=== PATIENT | female | born 1980 | race Caucasian/White ===

== ENCOUNTER 2017-02-10 16:17 | Emergency (ER) | payer OTHER ==
[~2017-02-10] VITALS: Ht 175.3 cm; Wt 84.4 kg
[2017-02-10] MEDS ORDERED: CALCTAB37 PO (16:57)
[2017-02-10] MEDS ORDERED: MAGN250T5 PO (16:57)
[2017-02-10] MEDS ORDERED: VITA100066 PO (16:57)
[2017-02-10] MEDS ORDERED: FLINCHW5 PO (16:57)
[2017-02-10] MEDS ORDERED: ESCI10TA2 PO (16:57)
[2017-02-10] MEDS ORDERED: BLAC160C PO (16:57)
[2017-02-10] MEDS ORDERED: BIOT10005 PO (16:57)
[2017-02-10] MEDS ORDERED: VITB12 (16:57)
[2017-02-10] MEDS ORDERED: ACETAMINOPHEN 325 MG TAB PO ONE (19:45)
--- NOTE | 2017-02-10 20:20 | REPUSA ---
CLINICAL HISTORY: B/L CALF PAIN COMMENTS: Real time sonography with duplex doppler of the extremities bilaterally was performed with attention to the major deep venous structures. Evaluation reveals the common femoral, superficial femoral and popliteal veins bilaterally to be comp letely compressible without intraluminal thrombus. There is normal spontaneous phasic flow and augmen tation in all deep veins. The greater saphenous/common femoral vein junctions are patent bilaterally. IMPRESSION: No evidence of DVT in the lower extremities bilaterally. Thank you for your kind referral of this patient.
[2017-02-10 20:34] VITALS: BP 120/69
== END 2017-02-10 20:43 | disposition home or self-care (01) ==
LOC: M ED 17:34
DX: R25.2 Cramp and spasm (principal); M54.9 Dorsalgia, unspecified; Z98.84 Bariatric surgery status; Z88.8 Allergy status to other drugs, medicaments and biological substances; Z79.899 Other long term (current) drug therapy